=== PATIENT | male | born 1990 | race Caucasian/White ===

== ENCOUNTER 2016-10-21 16:41 | Emergency (ER) | payer SELFPAY ==
[2016-10-21 16:49] VITALS: TEMP 98.1
[2016-10-21] MEDS ORDERED: fentaNYL 100 MCG/2 ML INJ IVP ONE (17:23)
--- NOTE | 2016-10-21 17:30 | EDPHY ---
H & P Smoking Status: Current every day smoker Time Seen by Provider: 10/21/16 17:01 HPI/ROS: CHIEF COMPLAINT: right shoulder injury HISTORY OF PRESENT ILLNESS: 26-year-old male visiting from [place], was snowboarding, fell onto his right shoulder, complaining of right shoulder injury. Arrives via private vehicle. No prior history of injury or dislocation. No head injury. No neck pain injury. No dyspnea. PHYSICAL EXAM (Prior to examination, patient consented to physical exam, hands were washed and my usual and customary physical exam procedures followed) 1) GENERAL: Well-developed, well-nourished, alert and oriented. Appears to be in no acute distress. 2) HEAD: Normocephalic 3) HEENT: Pupils equal, round, reactive to light bilaterally. 4) LUNGS: Breathing comfortably. 5) MUSCULOSKELETAL: Lateral step-off anterior fullness consistent with anterior dislocation. Soft compartments. Normal coloration. 6) SKIN: intact 7) VASCULAR: pulses and cap refill present are brisk 8) NEUROLOGIC: Radial, ulnar, median nerve function intact with no deficits appreciated on exam . Bilateral deltoid sensation equal. DIFFERENTIAL DIAGNOSIS: in no particular order including but not limited to fracture, sprain dislocation Pre reduction x-ray shows an anterior dislocation Post reduction x-ray shows normal anatomic alignment with no definitive fracture (Ora Vitale) Constitutional: Initial Vital Signs Temperature (C) 36.7 C 10/21/16 16:45 Heart Rate 92 10/21/16 16:45 Respiratory Rate 18 10/21/16 16:45 Blood Pressure 179/96 H 10/21/16 16:45 O2 Sat (%) 97 10/21/16 16:45 O2 Delivery Mode Room Air Allergies/Adverse Reactions: No Known Allergies Allergy (Unverified 10/21/16 16:45) Home Medications: Medication Instructions Recorded NK [No Known Home Meds] 10/21/16 MDM/Departure - MDM Procedures: Procedure: Dislocation reduction. . The dislocation of the right shoulder was reduced using traction counter traction technique without complications. Post reduction the patient's neurovascular exam is normal. Post reduction x-ray demonstrates reduction of the joint to the anatomic position. The procedure was performed by myself. Procedure: Splint A sling splint was applied by ER pharmacist technician. After application of the splint I returned and re-examined the patient. The splint was adequately immobilizing the joint and distal to the splint the patient's circulation and sensation were intact. Patient shows no signs of compartment syndrome. Was given orthopedic precautions. (Ora Vitale) Medications Given: Discontinued Medications Hydrocodone Bitart/Acetaminophen (Ohlman 5/325mg Prepack#6) 1 btl TAKEHOME EDNOW ONE Stop: 10/21/16 17:34 Last Admin: 10/21/16 17:55 Dose: 1 btl Fentanyl (Sublimaze) 100 mcg IVP EDNOW ONE Stop: 10/21/16 17:24 Last Admin: 10/21/16 17:30 Dose: 100 mcg ED Course/Re-evaluation: Patient was also seen and examined by Dr. Kary Hayes. Re-evaluation with serial exams. Neurovascularly intact pre and post reduction. Recommend he follow up with orthopedic surgeon in [place] he returns tomorrow. He is given copies of his x-rays. given usual customary orthopedic precautions instructions. (Ora Vitale) The patient was evaluated and managed by the Physician Pulley Worker/ Nurse Practitioner. I discussed the patient's presentation and course with the midlevel provider with them and agree with the evaluation. My co-signature indicates that I have reviewed this chart and I agree with the findings and plan of care as documented. I am the secondary supervising physician. (Kary Hayes) - Depart Disposition: Home, Routine, Self-Care Clinical Impression: Recurrent dislocation, right shoulder Condition: Good Instructions: Shoulder Dislocation (ED) Additional Instructions: Return to the ER immediately if you experience discoloration, have worsening pain, numbness, tingling, or any other symptoms that concern you. If you received x-rays in the emergency department today, be advised, that ligamentous , tendon, muscular, and other non-bony injury cannot be fully ruled out. Try to keep your affected extremity elevated above the level of your chest, and keep cold packs on the affected area, for the next 48 hours. Referrals: Adan Laureano MD [Medical Doctor] - 2-3 days, call for appt. (Dr. Adan Laureano is orthopedic surgeon)
[2016-10-21] MEDS ORDERED: HYDROCOD/APAP 5/325 PREPACK#6 BTL TAKEHOME ONE (17:33)
[2016-10-21 18:02] VITALS: BP 144/113; PULSE 96; RESP 16; O2SAT 95
== END 2016-10-21 17:57 | disposition home or self-care (01) ==
LOC: EDBD 16:41
PROC: 0RSJXZZ Reposition Right Shoulder Joint, External Approach (ICD-10-PCS; principal; 2016-10-21)
DX: M24.411 Recurrent dislocation, right shoulder (principal); F17.200 Nicotine dependence, unspecified, uncomplicated; V00.311A Fall from snowboard, initial encounter; Y99.8 Other external cause status; Y93.23 Activity, snow (alpine) (downhill) skiing, snowboarding, sledding, tobogganing and snow tubing
CPT/HCPCS: 96374; J3010